=== PATIENT | male | born 1965 | race Caucasian/White ===

== ENCOUNTER 2018-01-18 15:03 | Emergency (ER) | payer MEDICAID ==
[~2018-01-18] VITALS: Ht 182.9 cm; Wt 177.2 kg
[2018-01-18] MEDS ORDERED: TETanus/Pertussis (Acell)/Diphther VAC/PF (Tdap-Adult) 0.5ml syringe IM ONE (15:40)
[2018-01-18] MEDS ORDERED: LIDOcaine 1.5% w/epinephrine 1:200,000 5ml ampul IJ ONE (15:40)
[2018-01-18 16:01] LABS: BASOPHILS % (AUTO) 0.2 % (0-1); EOSINOPHILS # (AUTO) 0.2 X10'3 (0-0.9); EOSINOPHILS % (AUTO) 1.6 % (0-6); HEMATOCRIT 48.3 % (42.0-52.0); HEMOGLOBIN 16.2 g/dl (14.0-17.9); LYMPHOCYTES # (AUTO) 0.8 X10'3 (1.1-4.8); LYMPHOCYTES % (AUTO) 5.1 % (21-51); MEAN CORPUSCULAR HEMOGLOBIN 29.8 PG (27.0-31.0); MEAN CORPUSCULAR HGB CONC 33.5 % (33.0-36.5); MEAN CORPUSCULAR VOLUME 89.1 FL (78-98); MEAN PLATELET VOLUME 8.1 FL (7.4-10.4); MONOCYTES % (AUTO) 6.7 % (2-12); NEUTROPHILS # (AUTO) 13.2 X10'3 (1.8-7.7); NEUTROPHILS % (AUTO) 86.4 % (42-75); PLATELET COUNT 222 X10'3 (140-440); RED BLOOD COUNT 5.42 X10'6 (4.70-6.10); RED CELL DISTRIBUTION WIDTH 13.4 % (11.5-14.5); WHITE BLOOD COUNT 15.3 X10'3 (4.5-11.0)
[2018-01-18 16:25] LABS: ALANINE AMINOTRANSFERASE 32 U/L (12-78); ALBUMIN 3.3 G/DL (3.4-5.0); ALBUMIN/GLOBULIN RATIO 0.8 (1.1-1.5); ALKALINE PHOSPHATASE 97 IU/L (46-116); ANION GAP 8 (8-16); ASPARTATE AMINO TRANSFERASE 17 U/L (10-37); BILIRUBIN,TOTAL 1.9 MG/DL (0.1-1.0); BLOOD UREA NITROGEN 8 MG/DL (7-18); BUN/CREATININE RATIO 9.8 (5.4-32.0); CALCIUM 8.6 MG/DL (8.5-10.1); CHLORIDE 98 MMOL/L (99-107); CREATININE 0.82 MG/DL (0.60-1.10); GLUCOSE 162 MG/DL (70-104); POTASSIUM 3.5 MMOL/L (3.5-5.1); SODIUM 135 MMOL/L (135-145); TOTAL CARBON DIOXIDE 29.2 MMOL/L (24-32); TOTAL PROTEIN 7.5 G/DL (6.4-8.2); eGFR > 90 ML/MIN
[2018-01-18] MEDS ORDERED: CefTRIAXone 2gm/D5W 50ml 50 ML IV ONE (17:15)
[2018-01-18] MEDS ORDERED: sulfamethoxazole/trimethoprim DS (800/160mg) tablet PO ONE (17:15)
[2018-01-18] MEDS ORDERED: SULF1TAB49 PO (17:16)
[2018-01-18] MEDS ORDERED: CEPH500C5 PO (17:16)
[2018-01-18 18:44] VITALS: BP 128/73
== END 2018-01-18 20:23 | disposition home or self-care (01) ==
LOC: EDBD 15:04 → ER 15:04
DX: L02.31 Cutaneous abscess of buttock (principal); R07.9 Chest pain, unspecified; R91.1 Solitary pulmonary nodule; Z79.2 Long term (current) use of antibiotics
CPT/HCPCS: 10060; 36415; 71046; 80053; 84484; 85025; 87070; 87077; 87186; 90471; 90715; 93005; 96365; 99285; J0696; J3490

== ENCOUNTER 2018-06-01 21:15 | Inpatient (IN) | payer MEDICAID ==
[~2018-06-01] VITALS: Ht 185.4 cm; Wt 172.7 kg
[~2018-06-01 21:15] MED LIST: CEPH500C5 PO
[2018-06-01] MEDS ORDERED: dexamethasone sod phosphate 10mg/ml inj IV STA (21:20)
[2018-06-01] MEDS ORDERED: ipratropium/albuterol 3ml nebule NEB ONE (21:20)
[2018-06-01 21:44] LABS: BASOPHILS % (AUTO) 0.4 % (0-1); EOSINOPHILS # (AUTO) 0.2 X10'3 (0-0.9); EOSINOPHILS % (AUTO) 3.6 % (0-6); HEMATOCRIT 46.7 % (42.0-52.0); HEMOGLOBIN 15.4 g/dl (14.0-17.9); LYMPHOCYTES # (AUTO) 1.3 X10'3 (1.1-4.8); LYMPHOCYTES % (AUTO) 19.8 % (21-51); MEAN CORPUSCULAR HEMOGLOBIN 29.2 PG (27.0-31.0); MEAN CORPUSCULAR HGB CONC 32.9 % (33.0-36.5); MEAN CORPUSCULAR VOLUME 88.9 FL (78-98); MEAN PLATELET VOLUME 8.3 FL (7.4-10.4); MONOCYTES # (AUTO) 0.6 X10'3 (0-0.9); MONOCYTES % (AUTO) 8.2 % (2-12); NEUTROPHILS # (AUTO) 4.6 X10'3 (1.8-7.7); PLATELET COUNT 252 X10'3 (140-440); RED BLOOD COUNT 5.26 X10'6 (4.70-6.10); RED CELL DISTRIBUTION WIDTH 14.3 % (11.5-14.5); WHITE BLOOD COUNT 6.8 X10'3 (4.5-11.0)
[2018-06-01] MEDS ORDERED: azithromycin 250mg tablet PO ONE (21:55)
[2018-06-01] MEDS ORDERED: CefTRIAXone 2gm/D5W 50ml 50 ML IV ONE (21:55)
[2018-06-01 22:00] LABS: ALANINE AMINOTRANSFERASE 39 U/L (12-78); ALBUMIN 3.3 G/DL (3.4-5.0); ALBUMIN/GLOBULIN RATIO 0.7 (1.1-1.5); ALKALINE PHOSPHATASE 102 IU/L (46-116); ANION GAP 9 (8-16); ASPARTATE AMINO TRANSFERASE 19 U/L (10-37); BILIRUBIN,TOTAL 0.6 MG/DL (0.1-1.0); BLOOD UREA NITROGEN 17 MG/DL (7-18); BUN/CREATININE RATIO 16.3 (5.4-32.0); CALCIUM 8.6 MG/DL (8.5-10.1); CHLORIDE 100 MMOL/L (99-107); CREATININE 1.04 MG/DL (0.60-1.10); GLUCOSE 223 MG/DL (70-104); POTASSIUM 3.6 MMOL/L (3.5-5.1); SODIUM 140 MMOL/L (135-145); TOTAL CARBON DIOXIDE 31.2 MMOL/L (24-32); eGFR 75 ML/MIN
[2018-06-01 22:06] LABS: MAGNESIUM 1.8 MG/DL (1.5-2.4)
--- NOTE | 2018-06-01 22:21 | NUR ---
Patient reporting no CP.
[2018-06-01] MEDS ORDERED: NO HOME MEDS (22:22)
[2018-06-01] MEDS ORDERED: heparin 25,000 UNIT/250ml bag 250 ML IV SCH ×2 (22:36→22:56)
[2018-06-01] MEDS ORDERED: heparin 10,000 units/1 ML INJ IV PRN (22:40)
[2018-06-01] MEDS ORDERED: heparin 10,000 units/1 ML INJ IV ONE ×2 (22:40→22:55)
--- NOTE | 2018-06-01 22:50 | NUR ---
Spoke to Dr. Alba at bedside. Orders to stop heparin drip.
[2018-06-01 22:54] LABS: PARTIAL THROMBOPLASTIN TIME 28 SECONDS (22-32); PROTHROMBIN TIME 10.6 SECONDS (9.0-12.0)
[2018-06-01] MEDS ORDERED: mag hydrox/Alum hydrox/simeth 30ml oral suspension PO PRN (22:55)
[2018-06-01] MEDS ORDERED: acetaminophen 325mg tablet PO PRN ×2 (22:55)
[2018-06-01] MEDS ORDERED: magnesium hydroxide 30ml (MOM) UD suspension PO PRN (22:55)
[2018-06-01] MEDS ORDERED: ondansetron/PF 4mg/2ml inj IV PRN (22:55)
[2018-06-01] MEDS: normal saline 1000ml 1,000 ML IV SCH (23:40)
[2018-06-02] VITALS (7 sets, daily range): BP systolic 130–165; BP diastolic 67–84
--- NOTE | 2018-06-02 00:04 | NUR ---
Patient will be placed in room 2012B. I have received report from Augustus ARANDA and had the opportunity to ask questions and assume patient care.
--- NOTE | 2018-06-02 04:25 | NUR ---
Patient states that he has had a burning sensation when urinating on and off for about one month. He also states that his urine has been dark and foul-smelling for about one month. Addendum: 06/02/18 at 0432 by Malachi Macias RN Amended: Links added.
--- NOTE | 2018-06-02 06:30 | NUR ---
Patient in room PCU 3012. I have received report from ROSI YEE and had the opportunity to ask questions and assume patient care.
[2018-06-02] MEDS: CefTRIAXone/D5W-Rocephin 1gm 50 ML IV SCH (08:03)
[2018-06-02] MEDS: enoxaparin 40mg/0.4ml syringe SUBCUT SCH (08:04)
[2018-06-02 09:37] LABS: BASOPHILS % (AUTO) 0.2 % (0-1); EOSINOPHILS % (AUTO) 0 % (0-6); HEMATOCRIT 48.7 % (42.0-52.0); HEMOGLOBIN 15.7 g/dl (14.0-17.9); LYMPHOCYTES # (AUTO) 1.1 X10'3 (1.1-4.8); LYMPHOCYTES % (AUTO) 15.3 % (21-51); MEAN CORPUSCULAR HEMOGLOBIN 28.8 PG (27.0-31.0); MEAN CORPUSCULAR HGB CONC 32.2 % (33.0-36.5); MEAN CORPUSCULAR VOLUME 89.5 FL (78-98); MEAN PLATELET VOLUME 8.5 FL (7.4-10.4); MONOCYTES # (AUTO) 0.3 X10'3 (0-0.9); MONOCYTES % (AUTO) 4.5 % (2-12); NEUTROPHILS # (AUTO) 5.6 X10'3 (1.8-7.7); PLATELET COUNT 282 X10'3 (140-440); RED BLOOD COUNT 5.45 X10'6 (4.70-6.10); RED CELL DISTRIBUTION WIDTH 14.4 % (11.5-14.5); WHITE BLOOD COUNT 7.1 X10'3 (4.5-11.0)
[2018-06-02 09:58] LABS: ALBUMIN 3.2 G/DL (3.4-5.0); ANION GAP 7 (8-16); BLOOD UREA NITROGEN 14 MG/DL (7-18); BUN/CREATININE RATIO 18.2 (5.4-32.0); CALCIUM 8.6 MG/DL (8.5-10.1); CHLORIDE 101 MMOL/L (99-107); CREATININE 0.77 MG/DL (0.60-1.10); GLUCOSE 170 MG/DL (70-104); POTASSIUM 5.2 MMOL/L (3.5-5.1); SODIUM 141 MMOL/L (135-145); TOTAL CARBON DIOXIDE 32.7 MMOL/L (24-32); eGFR > 90 ML/MIN
[2018-06-02] MEDS ORDERED: pneumococcal 23-VAL P-sac vacc 25 mcg/0.5ml vial IMVAC ONE (10:00)
[2018-06-02] MEDS: normal saline 1000ml 1,000 ML IV SCH (10:02)
[2018-06-02] MEDS ORDERED: NABU500T2 PO ×2 (12:02→12:03)
[2018-06-02] MEDS ORDERED: LEVO200T8 PO (12:02)
[2018-06-02] MEDS ORDERED: LEVO75TA7 PO (12:02)
[2018-06-02] MEDS ORDERED: ATOR20TA66 PO (12:03)
[2018-06-02] MEDS ORDERED: LISI-600 PO (12:05)
[2018-06-02] MEDS ORDERED: SILD100T PO (12:05)
[2018-06-02] MEDS ORDERED: furosemide 40mg/4ml inj IV ONE (12:15)
--- NOTE | 2018-06-02 14:09 | NUR ---
PAGER ID: [phone] MESSAGE: DR. WONG, 8402B/ANGELICA, HAS A REG. DIET ORDER BUT ALSO NPO AFTER MN, SO HAS BEEN NPO ALL DAY. ALSO ORDERED LASIX 40 IV, HAS NS ORDERED AT 100CC/HOUR. TY. CEASAR [id number].
--- NOTE | 2018-06-02 14:21 | NUR ---
PAGER ID: [phone] MESSAGE: DR. WONG, 1356T/ANGELICA, DOES NOT WANT TO GET UP TO WC TO TRANPORT FOR 2 VIEW CXR.STATES"IT TEARS ME UP EVERY TIME" CEASAR [id number]. TY
--- NOTE | 2018-06-02 14:35 | NUR ---
PAGED RADIOLOGY. PLEASE CALL CEASAR [id number] R/T [id number] 2 VIEW CXR. TY.
--- NOTE | 2018-06-02 14:47 | NUR ---
PT REFUSING WC FOR TRANSPORT TO RADIOLOGY FOR 2 VIEW CXR. YAMINI COMING IN APPROX 15 MINUTES WITH ELSA. ONCE ON ELSA, PAGE RADIOLOGY.
--- NOTE | 2018-06-02 14:50 | NUR ---
PAGED RADIOLOGY: 3010N, TRANSPORT WITH ELSA VALDIVIA TO PCU 15 MINUTES.
--- NOTE | 2018-06-02 18:58 | NUR ---
Problems reprioritized. Patient report given, questions answered & plan of care reviewed with ROSI ONEILL.
--- NOTE | 2018-06-02 19:02 | NUR ---
Patient in room PCU 3012. I have received report from Gildardo ARANDA and had the opportunity to ask questions and assume patient care. Pt resting comfortably, visitor at bedside.
[2018-06-02] MEDS ORDERED: azithromycin/NS 500mg/250ml 250 ML IV SCH (22:00)
[2018-06-03 02:00] VITALS: BP 139/79
[2018-06-03 06:00] VITALS: BP 147/96
[2018-06-03 06:00] LABS: BASOPHILS % (AUTO) 0.4 % (0-1); EOSINOPHILS # (AUTO) 0.1 X10'3 (0-0.9); EOSINOPHILS % (AUTO) 1.2 % (0-6); HEMATOCRIT 45.4 % (42.0-52.0); HEMOGLOBIN 14.7 g/dl (14.0-17.9); LYMPHOCYTES # (AUTO) 2.5 X10'3 (1.1-4.8); LYMPHOCYTES % (AUTO) 28.3 % (21-51); MEAN CORPUSCULAR HEMOGLOBIN 29.1 PG (27.0-31.0); MEAN CORPUSCULAR HGB CONC 32.4 % (33.0-36.5); MEAN CORPUSCULAR VOLUME 89.7 FL (78-98); MEAN PLATELET VOLUME 8.6 FL (7.4-10.4); MONOCYTES # (AUTO) 0.7 X10'3 (0-0.9); MONOCYTES % (AUTO) 7.5 % (2-12); NEUTROPHILS # (AUTO) 5.6 X10'3 (1.8-7.7); NEUTROPHILS % (AUTO) 62.6 % (42-75); PLATELET COUNT 264 X10'3 (140-440); RED BLOOD COUNT 5.06 X10'6 (4.70-6.10); RED CELL DISTRIBUTION WIDTH 14.4 % (11.5-14.5)
[2018-06-03 06:14] LABS: ALBUMIN 3.1 G/DL (3.4-5.0); ANION GAP 7 (8-16); BLOOD UREA NITROGEN 18 MG/DL (7-18); BUN/CREATININE RATIO 22.8 (5.4-32.0); CALCIUM 8.5 MG/DL (8.5-10.1); CHLORIDE 100 MMOL/L (99-107); CREATININE 0.79 MG/DL (0.60-1.10); GLUCOSE 132 MG/DL (70-104); POTASSIUM 3.8 MMOL/L (3.5-5.1); SODIUM 140 MMOL/L (135-145); TOTAL CARBON DIOXIDE 33.4 MMOL/L (24-32); eGFR > 90 ML/MIN
--- NOTE | 2018-06-03 06:37 | NUR ---
Problems reprioritized. Patient report given, questions answered & plan of care reviewed with Gildardo RN.
[2018-06-03] MEDS: CefTRIAXone/D5W-Rocephin 1gm 50 ML IV SCH (08:38)
[2018-06-03] MEDS: enoxaparin 40mg/0.4ml syringe SUBCUT SCH (08:39)
--- NOTE | 2018-06-03 08:52 | NUR ---
Patient in room U 3012. I have received report from ROSI ONEILL and had the opportunity to ask questions and assume patient care. Addendum: 06/03/18 at 0853 by Doyle Vincent RN REPORT RECEIVED AT 0620
[2018-06-03 11:00] VITALS: BP 140/76
[2018-06-03 15:00] VITALS: BP 156/84
[2018-06-03] MEDS ORDERED: methylPREDNISolone sod succ 125mg/2ml vial IV ONE (17:10)
[2018-06-03] MEDS ORDERED: furosemide 20 MG/2 ML vial IV ONE (17:10)
[2018-06-03] MEDS ORDERED: albuterol 2.5 MG/3 ML nebule NEB PRN (17:10)
--- NOTE | 2018-06-03 17:10 | NUR ---
PAGED RT: NEW RT ORDERS FOR 3013B. CEASAR [id number].
--- NOTE | 2018-06-03 18:44 | NUR ---
Problems reprioritized. Patient report given, questions answered & plan of care reviewed with ROSI AN.
[2018-06-03 18:45] VITALS: BP 142/71
--- NOTE | 2018-06-03 18:45 | NUR ---
Patient in room U 3013. I have received report from ROSI MCDONOUGH and had the opportunity to ask questions and assume patient care. Addendum: 06/03/18 at 2043 by Sebastian Vanegas RN Amended: Links added.
[2018-06-03] MEDS: ipratropium/albuterol 3ml nebule NEB SCH (19:53)
[2018-06-03] MEDS: lactobacillus rhamnosus 10,000 MMU CELLS/CAPSULE PO SCH (20:34)
[2018-06-03 23:30] VITALS: BP 181/62
--- NOTE | 2018-06-03 23:30 | NUR ---
0xygen came out of pt nose 70% on r/a. Addendum: 06/04/18 at 0150 by Sebastian Vanegas RN Amended: Links added.
--- NOTE | 2018-06-03 23:30 | NUR ---
pt legs washed and lotion applied to lower ext, dried skin, multiple scabs. Addendum: 06/04/18 at 0150 by Sebastian Vanegas RN Amended: Links added.
[2018-06-04 02:10] VITALS: BP 151/65
[2018-06-04] MEDS: ipratropium/albuterol 3ml nebule NEB SCH ×4 (02:27→19:57)
[2018-06-04 05:54] LABS: BASOPHILS # (AUTO) 0.1 X10'3 (0-0.2); BASOPHILS % (AUTO) 1.6 % (0-1); EOSINOPHILS % (AUTO) 0 % (0-6); HEMATOCRIT 48.3 % (42.0-52.0); HEMOGLOBIN 15.6 g/dl (14.0-17.9); LYMPHOCYTES # (AUTO) 1.4 X10'3 (1.1-4.8); LYMPHOCYTES % (AUTO) 14.6 % (21-51); MEAN CORPUSCULAR HEMOGLOBIN 29.1 PG (27.0-31.0); MEAN CORPUSCULAR HGB CONC 32.3 % (33.0-36.5); MEAN CORPUSCULAR VOLUME 90.1 FL (78-98); MEAN PLATELET VOLUME 8.6 FL (7.4-10.4); MONOCYTES # (AUTO) 0.5 X10'3 (0-0.9); MONOCYTES % (AUTO) 5.2 % (2-12); NEUTROPHILS # (AUTO) 7.5 X10'3 (1.8-7.7); NEUTROPHILS % (AUTO) 78.6 % (42-75); PLATELET COUNT 287 X10'3 (140-440); RED BLOOD COUNT 5.36 X10'6 (4.70-6.10); RED CELL DISTRIBUTION WIDTH 14.1 % (11.5-14.5); WHITE BLOOD COUNT 9.6 X10'3 (4.5-11.0)
[2018-06-04 06:01] LABS: ALBUMIN 3.3 G/DL (3.4-5.0); ANION GAP 6 (8-16); BLOOD UREA NITROGEN 14 MG/DL (7-18); BUN/CREATININE RATIO 19.7 (5.4-32.0); CALCIUM 8.5 MG/DL (8.5-10.1); CHLORIDE 97 MMOL/L (99-107); CREATININE 0.71 MG/DL (0.60-1.10); GLUCOSE 188 MG/DL (70-104); POTASSIUM 4.3 MMOL/L (3.5-5.1); SODIUM 139 MMOL/L (135-145); TOTAL CARBON DIOXIDE 36.5 MMOL/L (24-32); eGFR > 90 ML/MIN
--- NOTE | 2018-06-04 06:25 | NUR ---
Patient in room PCU 3013. I have received report from Mya ARANDA and had the opportunity to ask questions and assume patient care.
--- NOTE | 2018-06-04 06:30 | NUR ---
Problems reprioritized. Patient report given, questions answered & plan of care reviewed with ROSI ANDERSON. Addendum: 06/04/18 at 0646 by Sebastian Vanegas RN Amended: Links added.
[2018-06-04 07:00] VITALS: BP 140/72
[2018-06-04] MEDS: CefTRIAXone/D5W-Rocephin 1gm 50 ML IV SCH (07:55)
[2018-06-04] MEDS: azithromycin 250mg tablet PO SCH (07:56)
[2018-06-04] MEDS: enoxaparin 40mg/0.4ml syringe SUBCUT SCH (07:56)
[2018-06-04] MEDS: lactobacillus rhamnosus 10,000 MMU CELLS/CAPSULE PO SCH ×2 (07:56→19:41)
[2018-06-04] MEDS ORDERED: furosemide 40mg/4ml inj IV ONE (09:15)
--- NOTE | 2018-06-04 10:19 | NUR ---
PAGER ID: [phone] MESSAGE: [id number] Brant Alexanderbs: Do him to get a PT eval? Also did you want a chest CT on him? ROSI Vasquez Ext [phone]
[2018-06-04 11:00] VITALS: BP 136/73
[2018-06-04] MEDS ORDERED: iohexol 350MG/ML 100ml bottle IV ONE (11:46)
--- NOTE | 2018-06-04 13:22 | NUR ---
PAGER ID: [phone] MESSAGE: [id number] Brant Damon : Chest CT - show possible neoplasia. ROSI Vasquez Ext [phone]
--- NOTE | 2018-06-04 14:45 | NUR ---
Orientee documentation: I have reviewed and agree with all interventions, assessments performed and documented by ROSI Duffy.
--- NOTE | 2018-06-04 14:47 | NUR ---
Orientee Medication Administration: For this medication-pass time frame, all medication were reviewed, dispensed, administered and documented per hospital policy by ROSI Duffy.
[2018-06-04 15:00] VITALS: BP 139/49
[2018-06-04 18:00] VITALS: BP 149/59
--- NOTE | 2018-06-04 18:09 | NUR ---
Problems reprioritized. Patient report given, questions answered & plan of care reviewed with Maida ARANDA.
--- NOTE | 2018-06-04 18:47 | NUR ---
Patient in room PCU 3013. I have received report from ROSI Vasquez and had the opportunity to ask questions and assume patient care. Patient sleeping. No s/sx of distress. Placed O2f NC back on patient.
--- NOTE | 2018-06-04 20:54 | NUR ---
RT came to me to let me know that patient had taken off NC again and was sat ing in the 70s without it. She placed a mask on patient and had to place it up to 12LPM to get his sats in the 90s. I went to assess patient and placed pulse ox on finger for continuous use and RT robb ABG. Patient now sat ing in the mid 90s with mask on. Educated him to leave it on so his oxygenation can improve. He agreed.
[2018-06-04 21:01] LABS: ABG BASE EXCESS 15.7 mmol/L (-2.0-3.0); ABG HCO3 47.7 mmol/L (22.0-26.0); ABG OXYGEN SATURATION 96.8 % (95-98); ABG PCO2 (T) 98.1 mmHg (35.0-48.0); ABG PH (T) 7.306 (7.350-7.450); ABG PO2 (T) 94.8 mmHg (83-108); ALLEN'S TEST Positive; FCOHb 1.2 % (0.5-1.5); FLOW 12 L/min; FMetHb 0.3 % (0.3-1.12); FO2Hb 95.3 % (94-100); PATIENT TEMPERATURE 37.2; TOTAL HEMOGLOBIN 15.8 G/dl (14.0-18.0)
[2018-06-04 22:00] VITALS: BP 145/68
--- NOTE | 2018-06-04 22:16 | NUR ---
PATIENT PLACED ON BIPAP AFTER RT CALLED MD WITH CRITICAL ABG RESULT. PATIENT SATS IN THE MID 90s NOW AND IS RESTING COMFORTABLY.
[2018-06-04 22:51] LABS: ABG BASE EXCESS 11.5 mmol/L (-2.0-3.0); ABG HCO3 40.5 mmol/L (22.0-26.0); ABG OXYGEN SATURATION 88.5 % (95-98); ABG PCO2 (T) 72.9 mmHg (35.0-48.0); ABG PH (T) 7.363 (7.350-7.450); ABG PO2 (T) 56.9 mmHg (83-108); ALLEN'S TEST Positive; FCOHb 1.1 % (0.5-1.5); FMetHb 0.3 % (0.3-1.12); FO2Hb 87.3 % (94-100); MINUTE VOLUME 21 L/min; PATIENT TEMPERATURE 37.2; RESPIRATORY RATE 20 b/min; RESPIRATORY RATE (OBSERVED) 21 b/min; TOTAL HEMOGLOBIN 15.5 G/dl (14.0-18.0)
[2018-06-05 02:00] VITALS: BP 132/72
[2018-06-05] MEDS: ipratropium/albuterol 3ml nebule NEB SCH ×3 (02:14→13:50)
[2018-06-05 06:00] VITALS: BP 144/70
--- NOTE | 2018-06-05 06:00 | NUR ---
Problems reprioritized. Patient report given, questions answered & plan of care reviewed with ROSI Vasquez.
--- NOTE | 2018-06-05 06:05 | NUR ---
Patient in room PCU 3013. I have received report from ROSI Bey and had the opportunity to ask questions and assume patient care.
[2018-06-05 06:09] LABS: BASOPHILS % (AUTO) 0.3 % (0-1); EOSINOPHILS # (AUTO) 0.1 X10'3 (0-0.9); EOSINOPHILS % (AUTO) 1.3 % (0-6); HEMATOCRIT 46.5 % (42.0-52.0); HEMOGLOBIN 15.2 g/dl (14.0-17.9); LYMPHOCYTES # (AUTO) 2.8 X10'3 (1.1-4.8); LYMPHOCYTES % (AUTO) 29.1 % (21-51); MEAN CORPUSCULAR HEMOGLOBIN 29.2 PG (27.0-31.0); MEAN CORPUSCULAR HGB CONC 32.6 % (33.0-36.5); MEAN CORPUSCULAR VOLUME 89.6 FL (78-98); MEAN PLATELET VOLUME 8.6 FL (7.4-10.4); MONOCYTES # (AUTO) 0.9 X10'3 (0-0.9); MONOCYTES % (AUTO) 9.6 % (2-12); NEUTROPHILS # (AUTO) 5.7 X10'3 (1.8-7.7); NEUTROPHILS % (AUTO) 59.7 % (42-75); PLATELET COUNT 239 X10'3 (140-440); RED BLOOD COUNT 5.19 X10'6 (4.70-6.10); RED CELL DISTRIBUTION WIDTH 14.1 % (11.5-14.5); WHITE BLOOD COUNT 9.5 X10'3 (4.5-11.0)
[2018-06-05 06:18] LABS: ALBUMIN 3.2 G/DL (3.4-5.0); ANION GAP 4 (8-16); BLOOD UREA NITROGEN 16 MG/DL (7-18); BUN/CREATININE RATIO 19.5 (5.4-32.0); CALCIUM 8.6 MG/DL (8.5-10.1); CHLORIDE 96 MMOL/L (99-107); CREATININE 0.82 MG/DL (0.60-1.10); GLUCOSE 132 MG/DL (70-104); POTASSIUM 3.8 MMOL/L (3.5-5.1); SODIUM 139 MMOL/L (135-145); TOTAL CARBON DIOXIDE 39.5 MMOL/L (24-32); eGFR > 90 ML/MIN
[2018-06-05] MEDS: CefTRIAXone/D5W-Rocephin 1gm 50 ML IV SCH (08:04)
[2018-06-05] MEDS: enoxaparin 40mg/0.4ml syringe SUBCUT SCH (08:05)
[2018-06-05] MEDS: azithromycin 250mg tablet PO SCH (08:05)
[2018-06-05] MEDS: lactobacillus rhamnosus 10,000 MMU CELLS/CAPSULE PO SCH (08:05)
[2018-06-05 11:00] VITALS: BP 122/71
--- NOTE | 2018-06-05 13:23 | NUR ---
promotional table spacer PAGER ID: [phone] MESSAGE: RM [id number] Brant Jose: was taking Synthroid 75 mcg/daily can he put back on? Also the hospitalist who had him the last two days never reviewed his med rec. It is ready to be reviewed . ROSI Vasquez Ext [phone]
--- NOTE | 2018-06-05 13:28 | NUR ---
PAGER ID: [phone] MESSAGE: RM [id number] Brant Jose: Family reported he actually take 275mcg of Synthroid daily. Can he be put on that? He is currently getting none here. ROSI Vasquez Ext [phone]
--- NOTE | 2018-06-05 14:12 | NUR ---
Initial: Pt admitted with CP and bilat PNA. PT s/p CTA of chest shows no PE however shows lung mass per MD notes. Pt currently on heart healthy diet with documented PO intake 100% meeting nutrient needs. LBM 06/01, pt currently with no routine bowel care. Will continue to follow. Recommendations: 1) Continue with heart healthy diet 2) Monitor need for additional bowel care 3) Wt per rx Addendum: 06/05/18 at [address] Amended: Links added.
[2018-06-05 15:00] VITALS: BP 157/99
--- NOTE | 2018-06-05 15:16 | NUR ---
O2 Sat at rest on room air: 87% If below 89%: Recovery O2 Sat at rest on 2 LPM: 91% via Nasal Cannula (mask/nasal cannula, etc..) No further documentation is necessary. If O2 Sat did not drop below 89% on room air,ambulate patient on room air. O2 Sat while ambulating on room air:___% Recovery O2 Sat while ambulating on ___LPM:___% No further documentation is necessary. If patient does not drop below 89% while ambulating, he/she does not qualify for home O2.
[2018-06-05] MEDS ORDERED: ASPI81TA52 PO (15:36)
[2018-06-05] MEDS ORDERED: ALBU8HFA PO (15:36)
[2018-06-05] MEDS ORDERED: LEVO750T21 PO (15:36)
[2018-06-05] MEDS ORDERED: PRED20TA PO (15:36)
--- NOTE | 2018-06-05 16:52 | NUR ---
Medications called into [facility] pharmacy
--- NOTE | 2018-06-05 18:05 | NUR ---
Problems reprioritized. Patient report given, questions answered & plan of care reviewed with ROSI Woodard.
== END 2018-06-05 18:20 | disposition home or self-care (01) | DRG 133 ==
LOC: ER 21:15 → ED HOLD 22:55 → EDBEDREQ 23:46 → PCU 3S 06-02 00:10 → CMPBEDREQ 06-02 00:20 → PCU 3S 06-03 09:20
PROVIDERS: ADMIT Hospitalist; ATTEND Family Medicine
PROC: B32T1ZZ Computerized Tomography (CT Scan) of Left Pulmonary Artery using Low Osmolar Contrast (ICD-10-PCS; principal; 2018-06-04)
PROC: B3201ZZ Computerized Tomography (CT Scan) of Thoracic Aorta using Low Osmolar Contrast (ICD-10-PCS; 2018-06-04)
PROC: B32S1ZZ Computerized Tomography (CT Scan) of Right Pulmonary Artery using Low Osmolar Contrast (ICD-10-PCS; 2018-06-04)
PROC: 5A09357 Assistance with Respiratory Ventilation, Less than 24 Consecutive Hours, Continuous Positive Airway Pressure (ICD-10-PCS; 2018-06-04)
PROC: 5A09357 Assistance with Respiratory Ventilation, Less than 24 Consecutive Hours, Continuous Positive Airway Pressure (ICD-10-PCS; 2018-06-05)
DX: J96.01 Acute respiratory failure with hypoxia (principal); J18.9 Pneumonia, unspecified organism; I24.8 Other forms of acute ischemic heart disease; E66.01 Morbid (severe) obesity due to excess calories; J44.0 Chronic obstructive pulmonary disease with (acute) lower respiratory infection; Z68.43 Body mass index [BMI] 50.0-59.9, adult; F15.10 Other stimulant abuse, uncomplicated; F17.200 Nicotine dependence, unspecified, uncomplicated; F41.0 Panic disorder [episodic paroxysmal anxiety]; G47.30 Sleep apnea, unspecified; G89.29 Other chronic pain; R59.0 Localized enlarged lymph nodes; J98.01 Acute bronchospasm
CPT/HCPCS: 36415; 36600; 71045; 71046; 71275; 80048; 80053; 82803; 83605; 83735; 83880; 84145; 84484; 85018; 85025; 85610; 85730; 87040; 87070; 87502; 87503; 93005; 93306; 94640; 94660; 94760; 96365; 96375; 97110; 97116; 97162; 99291; G0378; J0456; J0696; J1100; J1650; J1940; J2930; J7030; Q9967

== ENCOUNTER 2018-12-02 22:54 | Observation (INO) | payer MEDICAID ==
[~2018-12-02] VITALS: Ht 188 cm; Wt 181.0 kg
[~2018-12-02 22:54] MED LIST changes: +ASPI81TA52 PO; +ATOR20TA66 PO; -CEPH500C5 PO; +LEVO200T8 PO; +LEVO75TA7 PO; +LISI-600 PO; +SILD100T PO
--- NOTE | 2018-12-02 23:22 | NUR ---
pt is 53 yo male c/o chest pain off and on x2 days per pt, +SOB, admits to doing meth "once in awhile", lasted smoked meth one week ago,
[2018-12-02 23:27] LABS: EOSINOPHILS # (AUTO) 0.3 X10'3 (0-0.9); HEMOGLOBIN 14.5 g/dl (14.0-17.9); MEAN PLATELET VOLUME 8.6 FL (7.4-10.4); RED CELL DISTRIBUTION WIDTH 15.3 % (11.5-14.5)
[2018-12-02 23:29] LABS: BASOPHILS # (AUTO) 0.1 X10'3 (0-0.2); BASOPHILS % (AUTO) 0.9 % (0-1); EOSINOPHILS % (AUTO) 3.6 % (0-6); HEMATOCRIT 44.8 % (42.0-52.0); LYMPHOCYTES # (AUTO) 1.5 X10'3 (1.1-4.8); LYMPHOCYTES % (AUTO) 16.2 % (21-51); MEAN CORPUSCULAR HEMOGLOBIN 29.7 PG (27.0-31.0); MEAN CORPUSCULAR HGB CONC 32.4 g/dL (33.0-36.5); MEAN CORPUSCULAR VOLUME 91.7 FL (78-98); MONOCYTES # (AUTO) 0.8 X10'3 (0-0.9); MONOCYTES % (AUTO) 9.2 % (2-12); NEUTROPHILS # (AUTO) 6.3 X10'3 (1.8-7.7); NEUTROPHILS % (AUTO) 70.1 % (42-75); PLATELET COUNT 227 X10'3 (140-440); RED BLOOD COUNT 4.89 X10'6 (4.70-6.10)
--- NOTE | 2018-12-02 23:30 | NUR ---
pt has $80.00 (4 $20 bills), cell phone, shirt and shorts
[2018-12-02 23:40] LABS: ALANINE AMINOTRANSFERASE 29 U/L (12-78); ALBUMIN/GLOBULIN RATIO 0.8 (1.1-1.5); ALKALINE PHOSPHATASE 86 IU/L (46-116); ANION GAP 4 (8-16); ASPARTATE AMINO TRANSFERASE 22 U/L (10-37); BILIRUBIN,TOTAL 0.5 MG/DL (0.1-1.0); BLOOD UREA NITROGEN 13 MG/DL (7-18); CALCIUM 8.6 MG/DL (8.5-10.1); CHLORIDE 105 MMOL/L (99-107); CREATININE 0.93 MG/DL (0.60-1.10); GLUCOSE 124 MG/DL (70-104); MAGNESIUM 1.8 MG/DL (1.5-2.4); POTASSIUM 4.3 MMOL/L (3.5-5.1); SODIUM 139 MMOL/L (135-145); TOTAL PROTEIN 6.9 G/DL (6.4-8.2); eGFR 85 ML/MIN
[2018-12-02 23:42] LABS: D-DIMER 2.02 MG/L FEU (0-0.50)
--- NOTE | 2018-12-03 00:03 | NUR ---
urinal given to the pt ,pt said he is not feeling like urinating now but he will try also informed that we have to do straight cath for urine sample pt refused to straight cath.
[2018-12-03] MEDS ORDERED: heparin 25,000 UNIT/250ml bag 250 ML IV SCH (00:17)
[2018-12-03] MEDS ORDERED: heparin 10,000 units/1 ML INJ IV PRN (00:20)
[2018-12-03] MEDS ORDERED: heparin 10,000 units/1 ML INJ IV ONE ×2 (00:20)
--- NOTE | 2018-12-03 00:33 | NUR ---
pt heparin drip not started as pt going to ct scan.
[2018-12-03] MEDS ORDERED: iohexol 350MG/ML 100ml bottle IV ONE (00:36)
[2018-12-03 00:53] LABS: PARTIAL THROMBOPLASTIN TIME 27 SECONDS (22-32)
--- NOTE | 2018-12-03 01:15 | NUR ---
pt back from ct scan,pt heparin bolus and infusion started .pt iinforme dthat we need urine sample ,pt denies for straight cath will talk to dr pinzon.
--- NOTE | 2018-12-03 01:22 | NUR ---
informed dr pinzon about pt urine specimen collection is still pending.as per md just collect whenever pt is ready.informed next assigned nurse josselyn wynn.
[2018-12-03] MEDS ORDERED: NO HOME MEDS (01:25)
[2018-12-03] MEDS ORDERED: mag hydrox/Alum hydrox/simeth 30ml oral suspension PO PRN (01:40)
[2018-12-03] MEDS ORDERED: docusate sod 100mg capsule PO PRN (01:40)
[2018-12-03] MEDS ORDERED: HYDROcodone/acetaminophen 5mg/325mg tablet PO PRN (01:40)
[2018-12-03] MEDS ORDERED: potassium CL 10mEq/100ml bag 100 ML IV PRN ×2 (01:40)
[2018-12-03] MEDS ORDERED: ipratropium/albuterol 3ml nebule NEB PRN (01:40)
[2018-12-03] MEDS ORDERED: magnesium 2GM in 50ml NS 50 ML IV PRN (01:40)
[2018-12-03] MEDS ORDERED: potassium Cl 20 mEq SR tablet PO PRN ×2 (01:40)
[2018-12-03] MEDS ORDERED: acetaminophen 325mg tablet PO PRN (01:40)
[2018-12-03] MEDS ORDERED: magnesium Cl slow-release 64mg tablet PO PRN (01:40)
[2018-12-03] MEDS ORDERED: ondansetron/PF 4mg/2ml inj IV PRN (01:40)
[2018-12-03] MEDS ORDERED: magnesium 4gm in 100ml NS 100 ML IV PRN (01:40)
[2018-12-03] MEDS ORDERED: LIDOcaine 2% 10ml TOPICAL JELLY (Urojet) MM PRN (02:00)
[2018-12-03] MEDS ORDERED: nicotine 21mg patch - 24 hr TD ONE (02:45)
[2018-12-03 03:00] VITALS: BP 141/82
[2018-12-03] MEDS: normal saline 1000ml 1,000 ML IV SCH ×4 (04:16→16:47)
[2018-12-03 05:49] LABS: CHOL/HDL RATIO 3.7 (0.00-4.99); CHOLESTEROL 157 MG/DL (0-200); HDL CHOLESTEROL 43 MG/DL (35-60); LDL CHOLESTEROL 103 MG/DL (50-100); TRIGLYCERIDES 88 MG/DL (20-135)
[2018-12-03 06:00] VITALS: BP 145/72
--- NOTE | 2018-12-03 06:00 | NUR ---
Patient in room PCU 3021. I have received report from Suzanne ARANDA and had the opportunity to ask questions and assume patient care.
[2018-12-03] MEDS: K and/or MAG REPLACEMENT MC SCH (08:00)
[2018-12-03] MEDS: heparin, porcine 5000 units/ml vial SQ SCH ×2 (08:25→16:28)
[2018-12-03 11:11] VITALS: BP 160/88
[2018-12-03] MEDS ORDERED: SYN0.088T PO (12:46)
[2018-12-03] MEDS ORDERED: LEVO200T8 PO (12:46)
[2018-12-03] MEDS ORDERED: ATOR20TA PO (12:49)
[2018-12-03] MEDS ORDERED: LISI-600 PO (12:51)
[2018-12-03] MEDS ORDERED: LEVO75TA7 PO (12:53)
[2018-12-03] MEDS ORDERED: ASPI81TA52 PO (12:54)
[2018-12-03 15:00] VITALS: BP 146/89
--- NOTE | 2018-12-03 18:10 | NUR ---
Problems reprioritized. Patient report given, questions answered & plan of care reviewed with Rahel ARANDA.
[2018-12-03 19:00] VITALS: BP 135/80
--- NOTE | 2018-12-03 22:44 | NUR ---
PAGER ID: [phone] MESSAGE: [id number] Brant Jose When sleeping patient sats down to 60s until awaken and recovers. States he doesn't use cpap at home but would like to try something tonight so we don't keep waking him up. Thanks! Lisa Timmons8 Addendum: 12/03/18 at 2245 by Lisa Duque RN Keila Olivas
[2018-12-03 23:00] VITALS: BP 154/89
[2018-12-04] MEDS: heparin, porcine 5000 units/ml vial SQ SCH ×3 (00:36→19:03)
[2018-12-04] MEDS: normal saline 1000ml 1,000 ML IV SCH ×2 (02:26→11:49)
[2018-12-04 03:00] VITALS: BP 144/78
[2018-12-04 05:22] LABS: BASOPHILS # (AUTO) 0.1 X10'3 (0-0.2); EOSINOPHILS # (AUTO) 0.2 X10'3 (0-0.9); EOSINOPHILS % (AUTO) 3.5 % (0-6); HEMATOCRIT 48.3 % (42.0-52.0); HEMOGLOBIN 15.4 g/dl (14.0-17.9); LYMPHOCYTES # (AUTO) 1.7 X10'3 (1.1-4.8); LYMPHOCYTES % (AUTO) 24.7 % (21-51); MEAN CORPUSCULAR VOLUME 93.8 FL (78-98); MEAN PLATELET VOLUME 8.5 FL (7.4-10.4); MONOCYTES # (AUTO) 0.8 X10'3 (0-0.9); MONOCYTES % (AUTO) 11.8 % (2-12); PLATELET COUNT 226 X10'3 (140-440); RED BLOOD COUNT 5.15 X10'6 (4.70-6.10); RED CELL DISTRIBUTION WIDTH 16.2 % (11.5-14.5); WHITE BLOOD COUNT 6.9 X10'3 (4.5-11.0)
[2018-12-04 05:29] LABS: ALANINE AMINOTRANSFERASE 88 U/L (12-78); ALBUMIN 3.1 G/DL (3.4-5.0); ALBUMIN/GLOBULIN RATIO 0.7 (1.1-1.5); ALKALINE PHOSPHATASE 96 IU/L (46-116); ANION GAP 3 (8-16); ASPARTATE AMINO TRANSFERASE 73 U/L (10-37); BILIRUBIN,TOTAL 0.4 MG/DL (0.1-1.0); BLOOD UREA NITROGEN 9 MG/DL (7-18); BUN/CREATININE RATIO 11.3 (5.4-32.0); CALCIUM 8.6 MG/DL (8.5-10.1); CHLORIDE 104 MMOL/L (99-107); CHOL/HDL RATIO 3.6 (0.00-4.99); CHOLESTEROL 157 MG/DL (0-200); GLUCOSE 139 MG/DL (70-104); HDL CHOLESTEROL 44 MG/DL (35-60); LDL CHOLESTEROL 99 MG/DL (50-100); MAGNESIUM 2.1 MG/DL (1.5-2.4); POTASSIUM 4.7 MMOL/L (3.5-5.1); SODIUM 142 MMOL/L (135-145); TOTAL CARBON DIOXIDE 35.3 MMOL/L (24-32); TOTAL PROTEIN 7.3 G/DL (6.4-8.2); TRIGLYCERIDES 109 MG/DL (20-135); eGFR > 90 ML/MIN
[2018-12-04 06:00] VITALS: BP 140/86
--- NOTE | 2018-12-04 06:00 | NUR ---
Patient in room PCU 3021. I have received report from Lisa ARANDA and had the opportunity to ask questions and assume patient care.
--- NOTE | 2018-12-04 06:12 | NUR ---
Problems reprioritized. Patient report given, questions answered & plan of care reviewed with Martina ARANDA.
[2018-12-04] MEDS: K and/or MAG REPLACEMENT MC SCH (08:00)
--- NOTE | 2018-12-04 09:14 | NUR ---
Page to Respiratory Therapy re: Room 3021 Brant Jose bipap alarming "High Priority Alarm" high tidal volume 9617
[2018-12-04 09:51] LABS: CLARITY,URINE CLEAR (Clear); COLOR,URINE YELLOW (Yellow); GLUCOSE, URINE NEGATIVE (Neg); KETONES,URINE NEGATIVE (Neg); LEUKOCYTE ESTERASE ,URINE NEGATIVE (Neg); NITRITES, URINE NEGATIVE (Neg); OCCULT BLOOD,URINE LARGE (Neg); PH,URINE 5.5 (4.8-8.0); PROTEIN,URINE NEGATIVE (Neg); UROBILINOGEN,URINE 0.2 E.U/dL (0.2-1.0)
[2018-12-04 09:56] LABS: URINE AMPHETAMINE SCREEN POSITIVE (Neg); URINE BARBITUATE SCREEN NEGATIVE (Neg); URINE BENZODIAZEPINES SCREEN NEGATIVE (Neg); URINE CANNABINOID SCREEN NEGATIVE (Neg); URINE COCAINE SCREEN NEGATIVE (Neg); URINE METHADONE SCREEN NEGATIVE (Neg); URINE OPIATE SCREEN NEGATIVE (Neg); URINE PHENCYCLIDINE SCREEN NEGATIVE (Neg)
[2018-12-04 09:59] LABS: UA COLLECTION TYPE VOIDED
[2018-12-04 10:00] LABS: BACTERIA,URINE NONE SEEN /HPF (Neg); MUCUS STRANDS FEW /LPF (Neg); RBC,URINE 0-2 /HPF (0-2); SQUAMOUS EPITHELIAL CELL,UR FEW /LPF (FEW); WBC,URINE NONE SEEN /HPF (0-4)
[2018-12-04 11:00] VITALS: BP 140/86
--- NOTE | 2018-12-04 12:36 | NUR ---
Page to PICC nurse re: Room 3021 Brant Viverosubbs PIV attempt x2 can you help please? Isolation MRSA
--- NOTE | 2018-12-04 14:05 | NUR ---
notified by Lab that MRSA nasal swab positive. Dr Noel notified no new orders.
[2018-12-04 15:00] VITALS: BP 179/95
--- NOTE | 2018-12-04 18:00 | NUR ---
Problems reprioritized. Patient report given, questions answered & plan of care reviewed with Lisa ARANDA.
--- NOTE | 2018-12-04 18:25 | NUR ---
Patient in room PCU 3021. I have received report from Martina ARANDA and had the opportunity to ask questions and assume patient care.
[2018-12-04 19:00] VITALS: BP 160/76
[2018-12-04 23:00] VITALS: BP 102/40
[2018-12-05] MEDS: heparin, porcine 5000 units/ml vial SQ SCH ×2 (00:35→07:20)
[2018-12-05 03:00] VITALS: BP 165/71
[2018-12-05] MEDS: normal saline 1000ml 1,000 ML IV SCH ×2 (03:36→13:36)
[2018-12-05 06:00] VITALS: BP 126/87
[2018-12-05 06:13] LABS: BASOPHILS % (AUTO) 0.4 % (0-1); EOSINOPHILS # (AUTO) 0.1 X10'3 (0-0.9); EOSINOPHILS % (AUTO) 1.4 % (0-6); HEMATOCRIT 45.7 % (42.0-52.0); HEMOGLOBIN 14.4 g/dl (14.0-17.9); LYMPHOCYTES # (AUTO) 1.7 X10'3 (1.1-4.8); LYMPHOCYTES % (AUTO) 19.6 % (21-51); MEAN CORPUSCULAR HGB CONC 31.5 g/dL (33.0-36.5); MEAN CORPUSCULAR VOLUME 95.1 FL (78-98); MEAN PLATELET VOLUME 8.7 FL (7.4-10.4); MONOCYTES # (AUTO) 0.9 X10'3 (0-0.9); MONOCYTES % (AUTO) 10.3 % (2-12); NEUTROPHILS # (AUTO) 5.8 X10'3 (1.8-7.7); NEUTROPHILS % (AUTO) 68.3 % (42-75); PLATELET COUNT 223 X10'3 (140-440); RED BLOOD COUNT 4.81 X10'6 (4.70-6.10); RED CELL DISTRIBUTION WIDTH 15.8 % (11.5-14.5); WHITE BLOOD COUNT 8.5 X10'3 (4.5-11.0)
--- NOTE | 2018-12-05 06:15 | NUR ---
Patient in room PCU 3021. I have received report from Lisa ARANDA and had the opportunity to ask questions and assume patient care.
--- NOTE | 2018-12-05 06:19 | NUR ---
Problems reprioritized. Patient report given, questions answered & plan of care reviewed with Corey ARANDA.
[2018-12-05 06:26] LABS: ALANINE AMINOTRANSFERASE 88 U/L (12-78); ALBUMIN 2.9 G/DL (3.4-5.0); ALBUMIN/GLOBULIN RATIO 0.7 (1.1-1.5); ALKALINE PHOSPHATASE 90 IU/L (46-116); ANION GAP 2 (8-16); ASPARTATE AMINO TRANSFERASE 43 U/L (10-37); BILIRUBIN,TOTAL 0.4 MG/DL (0.1-1.0); BLOOD UREA NITROGEN 7 MG/DL (7-18); BUN/CREATININE RATIO 9.3 (5.4-32.0); CALCIUM 8.7 MG/DL (8.5-10.1); CHLORIDE 103 MMOL/L (99-107); CREATININE 0.75 MG/DL (0.60-1.10); GLUCOSE 156 MG/DL (70-104); MAGNESIUM 1.9 MG/DL (1.5-2.4); POTASSIUM 4.4 MMOL/L (3.5-5.1); SODIUM 141 MMOL/L (135-145); TOTAL CARBON DIOXIDE 36.4 MMOL/L (24-32); eGFR > 90 ML/MIN
[2018-12-05] MEDS: K and/or MAG REPLACEMENT MC SCH (08:00)
[2018-12-05 11:00] VITALS: BP 166/94
--- NOTE | 2018-12-05 11:14 | NUR ---
Wound consult: Per [facility] notes pt with two open abscesses to right buttock and one to left buttock. Shailesh Villela. Pt documented with 100% PO intake meeting nutrient needs. No further nutrition intervention warranted at this time. Per notes patient discharging today. Will continue to follow. Addendum: 12/05/18 at [address] Amended: Links added.
--- NOTE | 2018-12-05 15:52 | NUR ---
Patient Discharged. Patient discharged home via private vehicle accompanied by patient's mother and sister. IV catheter removed prior to discharge, catheter intact. Tele leads removed from patient prior to discharge. Tele box returned to rn telemetry. Discharge instructions provided to patient prior to discharge and discussed with patient via RN. All patient belongings sent home with patient upon discharge. Patient escorted out of facility in wheelchair accompanied by RN.
== END 2018-12-05 16:00 | disposition home or self-care (01) ==
LOC: ER 22:55 → PCU 3S 12-03 02:41 → CMPBEDREQ 12-03 03:27
PROVIDERS: ADMIT Family Medicine; ATTEND Internal Medicine
DX: I21.A1 Myocardial infarction type 2 (principal); R07.9 Chest pain, unspecified; E78.5 Hyperlipidemia, unspecified; I10 Essential (primary) hypertension; F17.210 Nicotine dependence, cigarettes, uncomplicated; Z79.82 Long term (current) use of aspirin; E78.00 Pure hypercholesterolemia, unspecified; G47.30 Sleep apnea, unspecified; E03.9 Hypothyroidism, unspecified
CPT/HCPCS: 36415; 71045; 71275; 76937; 80053; 80061; 80305; 81001; 83735; 84484; 85025; 85379; 85610; 85730; 87081; 93005; 93306; 94660; 94667; 94760; 96365; 96366; 99284; G0378; J1644; J7030; Q9967